=== PATIENT | male | born 1990 | race Caucasian/White ===

== ENCOUNTER 2016-09-02 23:40 | Emergency (ER) | payer SELFPAY ==
[2016-09-02 23:53] VITALS: BP 136/99; TEMP 98.1
--- NOTE | 2016-09-03 00:02 | EDPHY ---
H & P Stated Complaint: possible allergic reaction Time Seen by Provider: 09/02/16 23:45 HPI/ROS: HPI The patient presents with concern for allergic reaction. 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 He said when he was walking at about 10:40 p.m. he began to feel somewhat "out of it". He says his skin felt itchy and he felt slightly short of breath. He had to stop and when he got to work several of the in please were concerned and encouraged him to go to the emergency room. He now says he feels an itchy rash on his chest, arms and legs. He also feels slightly short of breath. He denies any wheezing. He has no difficulty swallowing or sensation that his throat is swelling. He has not had any vomiting. He does not feel dizzy currently. He has a history of childhood nut allergy, but is not sure what sort of reaction he had. REVIEW OF SYSTEMS Constitutional: No fever, no chills. Eyes: No discharge. ENT: No sore throat. Cardiovascular: No chest pain, no palpitations. Respiratory: No cough, no shortness of breath. Gastrointestinal: No abdominal pain, no vomiting. Genitourinary: No hematuria. Musculoskeletal: No back pain. Skin: Positive for rashes. Neurological: No headache. 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 PHYSICAL General Appearance: Alert, no distress Eyes: Pupils equal and round no pallor or injection ENT, Mouth: Mucous membranes moist, mild uvular edema, posterior pharynx is slightly erythematous otherwise Respiratory: There are no retractions, lungs are clear to auscultation Cardiovascular: Tachycardic rate and regular rhythm Gastrointestinal: Abdomen is soft and non-tender, no masses, bowel sounds normal Neurological: A&O, moves all extremities Skin: Warm and dry, diffuse urticarial rash on right anterior chest wall, legs , hands Musculoskeletal: Neck is supple non tender Extremities: symmetrical, full range of motion Psychiatric: Patient is oriented X 3, there is no agitation Source: Patient Exam Limitations: No limitations - Personal History Current Tetanus/Diphtheria Vaccine: Yes Current Tetanus Diphtheria and Acellular Pertussis (TDAP): Yes - Medical/Surgical History Hx Asthma: Yes Hx Chronic Respiratory Disease: No Hx Diabetes: No Hx Cardiac Disease: No Hx Renal Disease: No Hx Cirrhosis: No Hx Alcoholism: No Hx HIV/AIDS: No Hx Splenectomy or Spleen Trauma: No Other PMH: neg - Social History Smoking Status: Never smoked Constitutional: Initial Vital Signs Temperature (C) 36.7 C 09/02/16 23:51 Heart Rate 118 H 09/02/16 23:51 Respiratory Rate 20 09/02/16 23:51 Blood Pressure 136/99 H 09/02/16 23:51 O2 Sat (%) 93 09/02/16 23:51 O2 Delivery Mode Room Air Allergies/Adverse Reactions: peanut Allergy (Verified 09/02/16 23:47) Home Medications: Medication Instructions Recorded EPINEPHRINE [EPIPEN] 0.3 mg IM ONCE #2 syr 09/03/16 Medical Decision Making Differential Diagnosis: This is a 26-year-old male with history of nut allergy, asthma who presents with concern for an allergic reaction after eating pizza for dinner tonight. His onset of symptoms was just prior to arrival with itchy rash, shortness of breath, generally feeling unwell. On exam, he is tachycardic, initially hypoxic, however this improved without intervention. He does have urticaria and uvular edema. I am concerned he is experiencing anaphylaxis versus allergic reaction. He says he is feeling much better than when his symptoms initially started. He would like to go home. I explained to him that standard treatment for a presentation such as this would include epinephrine, Solu-Medrol, Benadryl, Pepcid. He is concerned about his bill and does not like going to the doctor. He says he will return if he is worse in any way. I have explained that he will have to go against medical advice and he is in agreement with this. He accepts the risks of being discharged against advice which include . He says he will go directly to the pharmacy with a co-worker and take Benadryl and Pepcid. I have given him a prescription for epi pens and he says he will be able to fill this tonight. I have encouraged him to return for further evaluation if you would like. Departure - Departure Disposition: Against Medical Advice Clinical Impression: Allergic reaction Qualifiers: Encounter type: initial encounter Qualified Code(s): T78.40XA - Allergy, unspecified, initial encounter Condition: Fair Instructions: Anaphylaxis (ED) Additional Instructions: Please return to the emergency room if you would like to be evaluated. I recommend that you take Benadryl 50 mg and Pepcid 20 mg as soon as possible. Please use the EpiPen if your symptoms are worse in any way. Referrals: NONE *PRIMARY CARE P,. [Primary Care Provider] - As per Instructions Prescriptions: EPINEPHRINE [EPIPEN] 0.3 mg IM ONCE #2 syr
[2016-09-03 00:18] VITALS: PULSE 104; RESP 18; O2SAT 94
== END 2016-09-03 00:10 | disposition left against medical advice (07) ==
DX: T78.40XA Allergy, unspecified, initial encounter (principal); J45.909 Unspecified asthma, uncomplicated; Z91.010 Allergy to peanuts

== ENCOUNTER → 2017-08-10 | Outpatient (CLI) | payer OTHER | LOC: BMCIMAGING 07:50 | PROVIDERS: ATTEND Registered Nurse | DX: S59.902A Unspecified injury of left elbow, initial encounter (principal) ==